=== PATIENT | female | born 1950 ===

== ENCOUNTER 2018-06-24 07:41 | Outpatient (CLI) | payer OTHER ==
[~2018-06-24] VITALS: Ht 152.4 cm; Wt 59.0 kg
== END 2018-06-24 08:05 | disposition home or self-care (01) ==
LOC: OFIC 805 07:41
DX: H72.2X1 Other marginal perforations of tympanic membrane, right ear (principal); H90.A11 Conductive hearing loss, unilateral, right ear with restricted hearing on the contralateral side; H61.23 Impacted cerumen, bilateral; J31.0 Chronic rhinitis

== ENCOUNTER 2018-07-29 08:24 | Outpatient (CLI) | payer OTHER ==
[~2018-07-29] VITALS: Ht 152.4 cm; Wt 59.0 kg
== END 2018-07-29 08:45 | disposition home or self-care (01) ==
LOC: OFIC 805 08:24
DX: H72.2X1 Other marginal perforations of tympanic membrane, right ear (principal); H90.A11 Conductive hearing loss, unilateral, right ear with restricted hearing on the contralateral side; J31.0 Chronic rhinitis

== ENCOUNTER 2018-12-16 07:27 | Outpatient (CLI) | payer OTHER ==
[~2018-12-16] VITALS: Ht 152.4 cm; Wt 61.2 kg
== END 2018-12-16 11:22 | disposition home or self-care (01) ==
LOC: OFIC 805 07:27
DX: H72.2X1 Other marginal perforations of tympanic membrane, right ear (principal); H90.11 Conductive hearing loss, unilateral, right ear, with unrestricted hearing on the contralateral side; H61.23 Impacted cerumen, bilateral; J31.0 Chronic rhinitis

== ENCOUNTER → 2020-01-30 | Outpatient (CLI) | payer OTHER | END | disposition home or self-care (01) | LOC: OFIC 805 08:30 | PROVIDERS: ATTEND Otolaryngology | DX: J31.0 Chronic rhinitis (principal); H90.A11 Conductive hearing loss, unilateral, right ear with restricted hearing on the contralateral side; H72.2X1 Other marginal perforations of tympanic membrane, right ear ==

== ENCOUNTER → 2020-03-12 | Outpatient (CLI) | payer OTHER | END | disposition home or self-care (01) | LOC: OFIC 805 08:45 | PROVIDERS: ATTEND Otolaryngology | DX: J31.0 Chronic rhinitis (principal); H90.A11 Conductive hearing loss, unilateral, right ear with restricted hearing on the contralateral side; H72.91 Unspecified perforation of tympanic membrane, right ear ==

== ENCOUNTER 2020-09-13 10:04 | Outpatient (CLI) | payer OTHER | END 2020-09-13 10:35 | disposition home or self-care (01) | LOC: OFIC 805 10:04 | PROVIDERS: ATTEND Otolaryngology | DX: J31.0 Chronic rhinitis (principal); H61.23 Impacted cerumen, bilateral ==

== ENCOUNTER 2022-02-20 05:00 | Day surgery (SDC) | payer OTHER ==
[~2022-02-20] VITALS: Ht 162.6 cm; Wt 96.6 kg
[~2022-02-20 05:00] MED LIST: FOLIC ACID0.8 M1 PO; TREXALL5 MG PO
[2022-02-20] MEDS ORDERED: CEPHALEXIN500 M1 PO (09:48)
[2022-02-20] MEDS ORDERED: OFLOXACIN5 M1 OTIC (09:48)
== END 2022-02-20 12:15 | disposition home or self-care (01) ==
LOC: CIR.AMB 05:00 → EDBD 08:15 → CIR.AMB 08:15
PROVIDERS: ATTEND Otolaryngology Otology & Neurotology
DX: H80.91 Unspecified otosclerosis, right ear (principal); H90.11 Conductive hearing loss, unilateral, right ear, with unrestricted hearing on the contralateral side; Z20.822 Contact with and (suspected) exposure to COVID-19; Z88.6 Allergy status to analgesic agent; Z86.16 Personal history of COVID-19; H93.13 Tinnitus, bilateral